=== PATIENT | female | born 2000 | race Two or more races ===

== ENCOUNTER 2024-01-19 16:33 | Emergency (ER) | payer OTHER ==
[~2024-01-19] VITALS: Ht 162.6 cm; Wt 85.3 kg
[2024-01-19 16:47] VITALS: BP 107/64; O2SAT 99
[2024-01-19] MEDS ORDERED: TETANUS & DIPHTHERIA TOX,ADULT 0.5 ML VIAL IM ONE (17:45)
[2024-01-19] MEDS ORDERED: CEFTRIAXONE SODIUM 1,000 MG VIAL IM ONE (17:45)
== END 2024-01-19 17:47 | disposition home or self-care (01) ==
LOC: ER 16:35
DX: S61.011A Laceration without foreign body of right thumb without damage to nail, initial encounter (principal); W26.8XXA Contact with other sharp object(s), not elsewhere classified, initial encounter; Y93.89 Activity, other specified; Y92.89 Other specified places as the place of occurrence of the external cause; Y99.9 Unspecified external cause status; Z88.8 Allergy status to other drugs, medicaments and biological substances

== ENCOUNTER 2024-01-25 09:07 | Emergency (ER) | payer OTHER ==
[~2024-01-25] VITALS: Ht 162.6 cm; Wt 85.3 kg
[2024-01-25] MEDS ORDERED: TRAMADOL HCL 50 MG TABLET PO ONE (10:00)
== END 2024-01-25 10:35 | disposition home or self-care (01) ==
LOC: ER 09:08
DX: Z48.02 Encounter for removal of sutures (principal); Z88.9 Allergy status to unspecified drugs, medicaments and biological substances